=== PATIENT | female | born 1985 | race Caucasian/White ===

== ENCOUNTER → 2019-05-19 | Outpatient (CLI) | payer OTHER ==
--- NOTE | 2019-05-19 09:20 | US ---
EXAM DESCRIPTION: Renal CLINICAL HISTORY: 33 years Female, FLANK PAIN COMPARISON: None. TECHNIQUE: Retroperitoneal sonogram was performed to evaluate the kidneys and bladder. FINDINGS: Right kidney Right renal length is 10.5 cm. Renal cortical thickness and echogenicity are normal. No right renal mass, cyst or shadowing stone. No hydronephrosis. Left kidney Left renal length is 11.3 cm. Renal cortical thickness and echogenicity are normal. No left renal mass, cyst or shadowing stone. No hydronephrosis. Urinary bladder Bladder is empty of urine. IMPRESSION: Normal sonographic appearance of the kidneys. Electronically signed by: Damián Justice MD 05/19/2019 9:18 AM CDT
== END ==
LOC: US 09:00
PROVIDERS: ATTEND Nurse Practitioner Family
DX: R10.9 Unspecified abdominal pain (principal)